=== PATIENT | female | born 1995 | race Caucasian/White ===

== ENCOUNTER 2017-04-05 11:15 | Day surgery (SDC) | payer BC, MEDICAID ==
[2017-04-05] MEDS ORDERED: FENTAnyl 50 MCG/ML VIAL IV ×3 (12:00)
[2017-04-05] MEDS ORDERED: CEFAZOLIN 1 GM INJ (12:00)
[2017-04-05] MEDS ORDERED: HYDROmorphONE (0.2 MG/ML) 10ML SYG IV ×3 (12:00)
[2017-04-05] MEDS ORDERED: ROCURONIUM 50 MG INJ (12:00)
[2017-04-05] MEDS ORDERED: OXYCODONE/ACETAMINOPHEN (5/325) TAB PO ×2 (12:00)
[2017-04-05] MEDS ORDERED: PROPOFOL 20 ML (12:00)
[2017-04-05] MEDS ORDERED: LABETALOL HCL 20MG INJ IV (12:00)
[2017-04-05] MEDS ORDERED: hydrALAzine 20 MG INJ IV (12:00)
[2017-04-05] MEDS ORDERED: DIPHENHYDRAMINE 50 MG INJ IV (12:00)
[2017-04-05] MEDS ORDERED: METOCLOPRAMIDE 10 MG INJ IV (12:00)
[2017-04-05] MEDS ORDERED: EPHEDrine SULFATE 50 MG/5 ML SYG IV (12:00)
[2017-04-05] MEDS ORDERED: MIDAZOLAM 1 MG/ML 2 ML INJ ×2 (12:01→12:49)
[2017-04-05] MEDS ORDERED: FENTAnyl 50 MCG/ML VIAL (12:01)
[2017-04-05] MEDS ORDERED: CEFAZOLIN 2 GM/50 ML (PMX) 50 ML IVPB (12:30)
[2017-04-05] MEDS: BUPIVACAINE 0.25% (MPF) 30 ML INJ (12:44)
[2017-04-05] MEDS ORDERED: ONDANSETRON 4 MG INJ (12:46)
[2017-04-05] MEDS ORDERED: METOCLOPRAMIDE 10 MG INJ (12:46)
[2017-04-05] MEDS ORDERED: SUGAMMADEX SODIUM 200 MG/2 ML VIAL IV (12:47)
[2017-04-05] MEDS ORDERED: DEXAMETHASONE 4 MG/ML 1 ML INJ (12:47)
[2017-04-05] MEDS ORDERED: HYDROCODONE/APAP (5/325) TAB PO (13:00)
[2017-04-05] MEDS ORDERED: MEPERIDINE 100 MG INJ (13:03)
[2017-04-05] MEDS: ONDANSETRON 4 MG INJ IV (13:43)
[2017-04-05] MEDS: MEPERIDINE 25 MG INJ IV (13:43)
== END 2017-04-05 14:49 | disposition home or self-care (01) ==
LOC: SDS 11:15
DX: D24.1 Benign neoplasm of right breast (principal)
CPT/HCPCS: 19120; 88307